=== PATIENT | female | born 1965 | race African-American/Black ===

== ENCOUNTER 2018-05-08 22:36 | Emergency (ER) | payer SELFPAY ==
[~2018-05-08] VITALS: Ht 154.9 cm; Wt 83.0 kg
[2018-05-08 23:17] LABS: CLARITY URINE CLOUDY (CLEAR); COLOR URINE RED (YELLOW); KETONES URINE 1+ (NEGATIVE); LEUKOCYTE ESTERASE URINE 3+ (NEGATIVE); NITRITE URINE POSITIVE (NEGATIVE); OCCULT BLOOD URINE 3+ (NEGATIVE); PROTEIN URINE 2+ (NEGATIVE); SPECIFIC GRAVITY URINE 1.008 (1.005-1.030)
[2018-05-09] MEDS ORDERED: KETOROLAC 30MG/ML VIAL IM ONE (00:30)
[2018-05-09 00:39] VITALS: BP 137/82
== END 2018-05-09 00:40 | disposition home or self-care (01) ==
LOC: ER 22:36
DX: N39.0 Urinary tract infection, site not specified (principal); I10 Essential (primary) hypertension; Z98.51 Tubal ligation status; Z90.710 Acquired absence of both cervix and uterus; Z98.890 Other specified postprocedural states; Z88.0 Allergy status to penicillin
CPT/HCPCS: 81003; 87086; 96372; 99283; J1885; Z7610